=== PATIENT | female | born 2000 | race Two or more races ===

== ENCOUNTER 2021-12-07 00:35 | Emergency (ER) | payer OTHER, SELFPAY ==
--- NOTE | ~2021-12-07 | XR_ITS ---
EXAMINATION: XR chest 2V DATE: 12/07/2021 03:40 INDICATION: Left-sided numbness TECHNIQUE: PA and lateral views of the chest are obtained. COMPARISON: None available FINDINGS: The lungs are free of acute opacities. There is no pleural effusion or pneumothorax. The ca rdiomediastinal silhouette is normal. The visualized bones and soft tissues are unremarkable. IMPRESSION: 1. No acute cardiopulmonary abnormality. Reviewed, dictated and finalized at location A.
--- NOTE | ~2021-12-07 | CT_ITS ---
EXAMINATION: CT brain wo con INDICATION: Left-sided numbness COMPARISON: None TECHNIQUE: Standard unenhanced head CT. The dose-length product (DLP) was 605.33 mGy-cm. The mA was a djusted according to patient size. Iterative reconstruction technique was employed. FINDINGS: There is no intracranial hemorrhage, acute infarction, or abnormal mass lesion. The ventric les are normal. There is no abnormal mass effect or midline shift. The velásquez-white matter differentiat ion is normal. The basal cisterns are patent. The orbits are normal. The paranasal sinuses, mastoids and calvarium are normal. IMPRESSION: 1. No acute intracranial abnormality. Reviewed, dictated and finalized at location A.
[2021-12-07 00:37] VITALS: BP 139/87; PULSE 83; RESP 18; TEMP 36.6; O2SAT 100
[2021-12-07 01:22] LABS: Basophils Absolute Auto 0.1 K/mm3 (0.0-0.1); Basophils Percent Auto 0.6 % (0.2-1.2); Eosinophils Absolute Auto 0.2 K/mm3 (0-0.3); Eosinophils Percent Auto 2.2 % (0-4.4); Hematocrit 36.9 % (37.0-47.0); Hemoglobin 12.7 g/dL (12.0-15.0); Immature Granulocyte Absolute 0.02 K/mm3 (0.00-0.031); Immature Granulocyte Percent A 0.2 % (0-0.5); Lymphocytes Absolute Auto 3.69 K/mm3 (0.9-3.2); Lymphocytes Percent Auto 41.4 % (18.3-44.2); Mean Corpuscular HGB Conc 34.4 g/dl (32-36); Mean Corpuscular Hemoglobin 31.4 pg (26-34); Mean Corpuscular Volume 91.3 fl (80-100); Mean Platelet Volume 9.3 fl (7.4-10.4); Monocytes Absolute Auto 0.9 K/mm3 (0.1-0.6); Monocytes Percent Auto 9.5 % (2.6-8.5); Neutrophils Absolute Auto 4.1 K/mm3 (1.3-6.7); Neutrophils Percent Auto 46.1 % (45.5-73.1); Platelet Count Result 275 k/mm3 (150-375); Red Blood Count 4.04 M/mm3 (4.2-5.4); Red Cell Distribution Width 11.4 % (11.5-14.5); White Blood Count 8.9 K/mm3 (4.5-10.0)
[2021-12-07 01:35] LABS: Alanine Aminotransferase 15 U/L (4-35); Albumin Level 4.5 g/dL (3.5-5.1); Alkaline Phosphatase 89 U/L (38-126); Anion Gap 7 mmol/L (8-16); Aspartate Amino Transferase 33 U/L (14-36); Bilirubin,Total 0.3 mg/dL (0.2-1.3); Blood Urea Nitrogen 19 mg/dL (7-17); Calcium 9.4 mg/dL (8.4-10.2); Carbon Dioxide 29 mmol/L (22-30); Chloride 102 mmol/L (98-107); Estimated CRCL calculation 94 ml/min; Estimated Glomerular Filt Rate > 60; Glucose 96 mg/dL (65-110); Potassium 4.1 mmol/L (3.4-5.0); Sodium 138 mmol/L (137-145)
[2021-12-07 02:14] LABS: Add Urine Microscopic? YES; Appearance Urine Clear (Clear); Bacteria Urine Trace /hpf; Bilirubin Urine Negative (Negative); Blood Urine 1+ (Negative); Color Urine Colorless (Yellow); Glucose Urine UA Negative (Negative); Ketones Urine Negative (Negative); Leukocyte Esterase Ur Negative LEU/UL (Negative); Mucus Urine Rare /lpf; Nitrate Urine Negative (Negative); Protein Urine Negative (Negative); Urobilinogen Urine Negative mg/dL (<2.0); WBC Urine 0-3 /hpf
[2021-12-07 02:22] LABS: Specific Grav Ur 1.001 (1.001-1.035)
[2021-12-07] MEDS: KETOROLAC 30 MG/ML VIAL (*BKC) IV PUSH (03:03)
--- NOTE | 2021-12-07 05:19 | ED.GENADULT ---
HPI - General Adult General Chief complaint: Extremity Problem,Nontraumatic Stated complaint: left leg and arm numbness Time Seen by Provider: 12/07/21 02:15 History of Present Illness HPI narrative: Patient is a 20-year-old female who presents ER with left-sided weakness. Began at 11 PM. She woke up in bed with this. Tingling in the left hand and the left leg. Leg is resolved but hand persist. No actual weakness. No slurred speech or facial droop. No difficulty with walking. Has not had similar symptoms previously. Reports she was working out today lifting weights. Denies any injury. Related Data Allergies Allergy/AdvReac Type Severity Reaction Status Date / Time No Known Allergies Allergy Mild Verified 06/06/10 18:03 Review of Systems Review of Systems: All systems reviewed & are unremarkable except as noted in HPI and below Constitutional: Constitutional: Denies chills, Denies fever(s) and Denies weakness ENT: Denies nasal congestion and Denies sore throat Cardiovascular: Cardiovascular: Denies chest pain, Denies rapid heart rate and Denies radiating jaw, neck or arm pain Respiratory: Respiratory: Denies cough, Denies dyspnea and Denies wheezing Gastrointestinal: Gastrointestinal: Denies abdominal pain, Denies nausea and Denies vomiting Neurologic: Denies dizziness, Denies syncope, Denies headache(s), Denies focal weakness and Reports numbness PMFSH Past Medical History Medical History (Updated 12/07/21 @ 07:37 by Esa Patel MD) Healthy female adult Surgical History Surgical History (Updated 12/07/21 @ 07:37 by Esa Patel MD) No history of previous surgery Social History Social History (Updated 12/07/21 @ 07:37 by Esa Patel MD) Smoking status: Never smoker Exam Narrative: GENERAL: Well-appearing, well-nourished, and in no acute distress. HEAD: Normocephalic, atraumatic. EYES: PERRL and EOMI. CHEST: Clear to auscultation. No respiratory distress. HEART: Regular rate and rhythm. Normal peripheral pulses. ABDOMEN: Soft, nontender, nondistended EXTREMITIES: Normal range of motion. No edema. SKIN: Warm, dry, no rash. NEURO: Sharp and soft touch intact throughout the upper extremities and lower extremities. No upper or lower extremity drift. Normal finger-nose testing. Normal [id number] testing. Cranial nerves II through XII intact. Alert and oriented x3. PSYCH: Normal mood and affect. Course Course Emergency Course: Patient feels improved. She is received some Toradol. Positive carpal tunnel compression test on the left side but this does not explain her left lower extremity tingling. Discussed admission to the hospital and possible MRI tomorrow and evaluation by neurology. Patient is concerned her insurance does not cover this today. Discussed I do not know what her insurance will cover without encourage her to stay in the hospital. Patient prefers to go home since she is feeling improved. I will give her the name of on-call PCP. Discussed possible as symptoms are related to CVA versus MS as opposed to radicular symptoms patient verbalized understanding. She will purchase an [id number] wrist splint and take anti-inflammatories in the interim. Vital Signs Vital signs: Vital Signs Temperature 97.8 F 12/07/21 00:37 Pulse Rate 83 12/07/21 00:37 Respiratory Rate 18 12/07/21 00:37 Blood Pressure 139/87 12/07/21 00:37 Pulse Oximetry 100 12/07/21 00:37 Temperature 97.8 F 12/07/21 00:37 Pulse Rate 83 12/07/21 00:37 Respiratory Rate 18 12/07/21 00:37 Blood Pressure 139/87 12/07/21 00:37 Pulse Oximetry 100 12/07/21 00:37 Medical Decision Making Vital Signs Vital Signs: Vital Signs Temperature 97.8 F 12/07/21 00:37 Pulse Rate 83 12/07/21 00:37 Respiratory Rate 18 12/07/21 00:37 Blood Pressure 139/87 12/07/21 00:37 Pulse Oximetry 100 12/07/21 00:37 Temperature 97.8 F 12/07/21 00:37 Pulse Ra
== END 2021-12-07 05:50 | disposition home or self-care (01) ==
PROVIDERS: Emergency Provider Emergency Medicine
DX: R20.0 Anesthesia of skin (principal)
CPT/HCPCS: 36415; 70450; 71046; 80053; 81001; 81025; 85025; 96374; 99284; J1885

== ENCOUNTER 2022-11-18 13:54 | Emergency (ER) | payer OTHER, SELFPAY ==
--- NOTE | ~2022-11-18 | XR_ITS ---
EXAMINATION: XR chest 2V Exam Date/Time: 11/18/2022 14:15 CDT HISTORY: sob chest pain on and off x 1 yr Comparison: 12/07/2021. RESULT: Lines, tubes, and devices: None. Lungs and pleura: Clear. Cardiomediastinal silhouette: Stable. Other: No acute osseous or upper abdominal finding. IMPRESSION: No acute cardiopulmonary process. Reviewed, dictated and finalized at location K.
[2022-11-18 14:02] VITALS: BP 151/85; PULSE 75; RESP 16; TEMP 36.6; O2SAT 100
--- NOTE | 2022-11-18 14:15 | ECG_ITS ---
Measurements Intervals [place] Rate: 72 P: 59 CA: 132 QRS: 41 QRSD: 94 T: 34 QT: 372 QTc: 409 Interpretive Statements SINUS RHYTHM WITH SINUS ARRHYTHMIA BASELINE ARTIFACT- I, II, III, AVR, AVL, AVF, V2 NORMAL ECG NO PREVIOUS ECG AVAILABLE FOR COMPARISON Electronically Signed On 11-18-2022 15:30:50 CDT by Cornell Lim D.O.
--- NOTE | 2022-11-18 14:38 | ED.GENADULT ---
HPI - General Adult General Chief complaint: Shortness of Breath/Dyspnea Stated complaint: Shortness of Breath Source: patient Mode of arrival: ambulatory Limitations: no limitations History of Present Illness HPI narrative: Patient presents for evaluation of shortness of breath for the past year. She states the symptoms are her fairly constant in seem link to underlying anxiety. She does experience palpitations. She denies any cough, chest pain, fever, chills, nausea, vomiting, sore throat, leg swelling. No personal or family history of DVT/PE. Not on contraception. No recent surgeries. She states she mentioned it to her primary provider on several occasions but the provider seemed to brush it off. She does not smoke or use an illicit drugs. Related Data Allergies Allergy/AdvReac Type Severity Reaction Status Date / Time No Known Allergies Allergy Mild Verified 11/18/22 14:06 Review of Systems Review of Systems: CONSTITUTIONAL: Denies fever, chills, or sweats. EYES: Denies visual changes, redness, or discharge. ENT: Denies rhinorrhea, congestion, sore throat, or otalgia. CARDIOVASCULAR: Reports palpitations. Denies chest pain, or edema. RESPIRATORY: Reports shortness of breath. Denies cough GASTROINTESTINAL: Denies abdominal pain, nausea, vomiting, or diarrhea. GENITOURINARY: Denies dysuria or hematuria. SKIN: Denies rash or itching. MUSCULOSKELETAL: Denies back pain, joint pain, or myalgia. NEUROLOGIC: Denies headache, numbness, dizziness, or weakness. PSYCHIATRIC: Reports anxiety. Denies depression. [facility] Past Medical History Medical History (Updated 11/18/22 @ 14:37 by ORACIO Watters, ) Healthy female adult Surgical History Surgical History No history of previous surgery Family History Family History Mother Family history non-contributory Social History Social History (Updated 11/18/22 @ 15:02 by ORACIO Watters, ) Smoking status: Never smoker Alcohol intake: current Alcohol use details: social Substance use: never Living arrangements: with roommate(s) Occupation/Education: student Gender identity (if verbalized by the patient): Female Spiritual care concerns: No Exam Narrative: GENERAL: Well-appearing, well-nourished, and in no acute distress. HEAD: Normocephalic, atraumatic. EYES: PERRLA and EOMI. ENT: Nares clear, no rhinorrhea or epistaxis. Mucous membranes moist. Oropharynx without tonsillar hypertrophy exudate or other lesions. Bilateral TMs pearly velásquez nonbulging NECK: Supple. No adenopathy or masses. No carotid bruits or JVD CHEST: Clear to auscultation. No respiratory distress. No wheezes rales or rhonchi HEART: Regular rate and rhythm. No murmur heard. Normal peripheral pulses. ABDOMEN: Soft, nontender, nondistended, normal active bowel sounds. EXTREMITIES: Normal range of motion. No edema. SKIN: Warm, dry, no rash. NEURO: No focal deficits. Alert and oriented x3. PSYCH: Normal mood and affect. Course Course Emergency Course: This is a 21-year-old female who presented for evaluation shortness of breath and anxiety. Chest x-ray was normal. EKG without acute ischemic changes. Exam is consistent with anxiety. No hypoxia or tachycardia to suggest PE. Will discharge with hydroxyzine. Follow up with primary provider. Go to the ER for worsening symptoms. Patient in agreement with plan of care. Level of Care: Express Care Visit Vital Signs Vital signs: Vital Signs Temperature 36.6 C 11/18/22 14:02 Pulse Rate 75 11/18/22 14:02 Respiratory Rate 16 11/18/22 14:02 Blood Pressure 151/85 H 11/18/22 14:02 Pulse Oximetry 100 11/18/22 14:02 Oxygen Delivery Room Air 11/18/22 14:02 Temperature 36.6 C 11/18/22 14:02 Pulse Rate 75 11/18/22 14:02 Respiratory Rate 16 11/18/22 14:02 Blood Pressure 1
== END 2022-11-18 14:40 | disposition home or self-care (01) ==
PROVIDERS: Emergency Provider Nurse Practitioner; PCP Emergency Medicine
DX: F41.9 Anxiety disorder, unspecified (principal)
CPT/HCPCS: 71046; 93005; 99213; G0463

== ENCOUNTER 2023-01-20 17:36 | Emergency (ER) | payer OTHER, SELFPAY ==
[2023-01-20 17:39] VITALS: BP 127/83; PULSE 101; RESP 18; TEMP 36.4; O2SAT 100
[2023-01-20 17:51] LABS: Basophils Percent Auto 0.2 % (0.2-1.2); Eosinophils Percent Auto 0.3 % (0-4.4); Hematocrit 41.8 % (37.0-47.0); Hemoglobin 14.3 g/dL (12.0-15.0); Immature Granulocyte Absolute 0.02 K/mm3 (0.00-0.031); Immature Granulocyte Percent A 0.2 % (0-0.5); Lymphocytes Absolute Auto 0.41 K/mm3 (0.9-3.2); Lymphocytes Percent Auto 3.9 % (18.3-44.2); Mean Corpuscular HGB Conc 34.2 g/dl (32-36); Mean Corpuscular Hemoglobin 31.4 pg (26-34); Mean Corpuscular Volume 91.9 fl (80-100); Mean Platelet Volume 9.5 fl (7.4-10.4); Monocytes Absolute Auto 0.3 K/mm3 (0.1-0.6); Monocytes Percent Auto 2.5 % (2.6-8.5); Neutrophils Absolute Auto 9.7 K/mm3 (1.3-6.7); Neutrophils Percent Auto 92.9 % (45.5-73.1); Platelet Count Result 226 k/mm3 (150-375); Red Blood Count 4.55 M/mm3 (4.2-5.4); White Blood Count 10.4 K/mm3 (4.5-10.0)
[2023-01-20 18:01] LABS: Alanine Aminotransferase 21 U/L (6-35); Albumin Level 4.7 g/dL (3.5-5.1); Alkaline Phosphatase 73 U/L (38-126); Anion Gap 7 mmol/L (8-16); Aspartate Amino Transferase 27 U/L (14-36); Blood Urea Nitrogen 15 mg/dL (7-17); Calcium 8.8 mg/dL (8.4-10.2); Carbon Dioxide 26 mmol/L (22-30); Chloride 104 mmol/L (98-107); Estimated CRCL calculation 118 ml/min; Estimated Glomerular Filt Rate > 60; Glucose 112 mg/dL (65-110); Lipase 43 U/L (23-300); Potassium 4.4 mmol/L (3.4-5.0); Sodium 137 mmol/L (137-145)
--- NOTE | 2023-01-20 18:54 | ED.ABDPAIN ---
HPI - Abdominal Pain General Chief Complaint: Abdominal Pain Stated Complaint: Abd pain Time Seen by Provider: 01/20/23 18:09 History of Present Illness HPI narrative: Patient is a 22-year-old female presenting with vomiting and diarrhea. Patient states since this morning she has had numerous episodes of vomiting. States that she had abdominal pain when she vomited last. States that she has had multiple episodes of diarrhea. No hematochezia or melena. No hematemesis. No abdominal pain outside of vomiting. Denies dysuria or hematuria. Last menstrual period was December 27. Denies chest pain or shortness of breath. No cough or fevers. Currently, states that she feels better than she has all day. Related Data Allergies Allergy/AdvReac Type Severity Reaction Status Date / Time No Known Allergies Allergy Mild Verified 11/18/22 14:06 Review of Systems Review of Systems: All systems reviewed & are unremarkable except as noted in HPI and below PMFSH Past Medical History Medical History Healthy female adult Surgical History Surgical History No history of previous surgery Family History Family History Mother Family history non-contributory Social History Social History Smoking status: Never smoker Alcohol intake: current Alcohol use details: social Substance use: never Living arrangements: with roommate(s) Occupation/Education: student Gender identity (if verbalized by the patient): Female Spiritual care concerns: No Exam Narrative: GENERAL: Well-appearing, well-nourished, and in no acute distress. HEAD: Normocephalic, atraumatic. EYES: PERRLA and EOMI. ENT: Nares clear, no rhinorrhea or epistaxis. Mucous membranes moist. NECK: Supple. CHEST: Clear to auscultation. No respiratory distress. HEART: Regular rate and rhythm. ABDOMEN: Soft, nontender, nondistended EXTREMITIES: Normal range of motion. No edema. SKIN: Warm, dry, no rash. NEURO: No focal deficits. Alert and oriented x3. PSYCH: Normal mood and affect. Course Vital Signs Vital signs: Vital Signs Temperature 97.6 F 01/20/23 17:39 Pulse Rate 101 H 01/20/23 17:39 Respiratory Rate 18 01/20/23 17:39 Blood Pressure 127/83 01/20/23 17:39 Pulse Oximetry 100 01/20/23 17:39 Oxygen Delivery Room Air 01/20/23 17:39 Temperature 97.6 F 01/20/23 17:39 Pulse Rate 101 H 01/20/23 17:39 Respiratory Rate 18 01/20/23 17:39 Blood Pressure 127/83 01/20/23 17:39 Pulse Oximetry 100 01/20/23 17:39 Oxygen Delivery Room Air 01/20/23 17:39 MDM - Abdominal Pain MDM Narrative Medical decision making narrative: Patient is a 22-year-old female presenting with vomiting and diarrhea for 1 day. Vitals within normal limits. Patient is well-appearing and in no acute distress. Patient states that she actually feels improved already. Do not feel imaging is warranted at this time. Plan for labs, oral Zofran. Blood work with mild leukocytosis, suspect related to the recent vomiting. UA is not indicative of infection. Patient received oral Zofran and states that her symptoms have completely resolved. She is tolerating p.o. intake. She feels comfortable going home. Advised that she follow-up with primary care. States that she does not have one, will provide the number for one. Appropriate return precautions given. Discharged in stable condition. Differential Diagnosis Differential diagnosis: Likely abdominal pain, gastroenteritis and other (nausea and vomiting, diarrhea) Medical Records Attestation: I reviewed the patient's medical records. Lab Data Attestation: I reviewed the patient's lab results. 01/20/23 17:44 01/20/23 17:44 Labs: Lab Results 01/05
[2023-01-20] MEDS: ONDANSETRON HCL ODT 4 MG TABLET PO (18:56)
[2023-01-20 19:35] LABS: Appearance Urine Clear (Clear); Bacteria Urine None Seen /hpf; Bilirubin Urine Negative (Negative); Color Urine Yellow (Yellow); Glucose Urine UA Negative (Negative); Ketones Urine 2+ mg/dL (Negative); Leukocyte Esterase Ur Trace LEU/UL (Negative); Nitrate Urine Negative (Negative); Non Pathogenic Casts 0-2; Protein Urine Trace mg/dL (Negative); Specific Grav Ur 1.026 (1.001-1.035); Squamous Epithelial Cell Urine None seen /hpf (Few); WBC Urine 0-5 /hpf; pH Urine 7.5 (5.0-9.0)
[2023-01-20 19:42] LABS: Add Urine Microscopic? YES
== END 2023-01-20 20:10 | disposition home or self-care (01) ==
PROVIDERS: Emergency Medicine; Emergency Provider Emergency Medicine
DX: R11.2 Nausea with vomiting, unspecified (principal); R19.7 Diarrhea, unspecified
CPT/HCPCS: 36415; 80053; 81001; 81025; 83690; 85025; 99283; A9270